=== PATIENT | female | born 1990 ===

== ENCOUNTER 2017-06-07 15:33 | Emergency (ER) | payer MEDICAID ==
[2017-06-07 15:40] VITALS: O2SAT 100
[2017-06-07 18:07] LABS: RBC URINE 1 /hpf (0-3); URINE BILIRUBIN NEGATIVE (NEGATIVE); URINE BLOOD NEGATIVE (NEGATIVE); URINE COLOR Yellow (YELLOW); URINE GLUCOSE (UA) NORMAL (Normal); URINE KETONE NEGATIVE (NEGATIVE); URINE LEUKOCYTE ESTERASE NEG Leu/uL (Negative); URINE PROTEIN NEGATIVE (NEGATIVE); URINE UROBILINOGEN NORMAL mg/dL (0.2-1.0)
--- NOTE | 2017-06-07 18:40 | C.PDOC ---
History Of Present Illness 26 yr old F c/o whitish vaginal d/c for 3-5 days, vaginal pruritis. Pt was not sexually active for 5 months. Denies hx of BV, yeast infection. Time Seen by Provider: 06/07/17 16:50 Chief Complaint (Nursing): Female Genitourinary History Per: Patient History/Exam Limitations: no limitations Onset/Duration Of Symptoms: Gradual Current Symptoms Are (Timing): Still Present Severity: Mild Pain Scale Rating Of: 3 Quality Of Discomfort: Dull Past Medical History Reviewed: Historical Data, Nursing Documentation, Vital Signs Vital Signs: Last Vital Signs Temp 98.2 F 06/07/17 18:52 Pulse 72 06/07/17 18:52 Resp 16 06/07/17 18:52 BP 121/70 06/07/17 18:52 Pulse Ox 100 06/07/17 18:52 - Medical History PMH: No Chronic Diseases Family History: States: No Known Family Hx - Social History Hx Alcohol Use: No Hx Substance Use: No - Immunization History Hx Tetanus Toxoid Vaccination: No Hx Influenza Vaccination: No Hx Pneumococcal Vaccination: No Review Of Systems Except As Marked, All Systems Reviewed And Found Negative. Constitutional: Negative for: Fever Gastrointestinal: Negative for: Nausea, Vomiting, Abdominal Pain Genitourinary: Positive for: Vaginal Discharge. Negative for: Dysuria, Frequency, Pelvic Pain Skin: Negative for: Rash Neurological: Negative for: Weakness, Numbness Physical Exam - Physical Exam Appears: Well, Non-toxic Skin: Normal Color, Warm, Dry Head: Atraumatic, Normacephalic Chest: Symmetrical Cardiovascular: Rhythm Regular Respiratory: Normal Breath Sounds Gastrointestinal/Abdominal: Normal Exam, Bowel Sounds, Soft, No Tenderness Pelvic: Normal External Exam, Normal Bimanual Exam, No Vaginal Bleeding, Vaginal Discharge (thin greyish d/c with a few cotton cheeze like clumps), No Cervical Motion Tenderness Extremity: Normal ROM ED Course And Treatment O2 Sat by Pulse Oximetry: 100 Pulse Ox Interpretation: Normal Progress Note: gc/chlam and cervical cx sent. ua wnl. pt offered STD prophy for GC/chlam, however, pt declines and wants to wait for reports. Disposition Counseled Patient/Family Regarding: Studies Performed, Diagnosis, Need For Followup, Rx Given - Disposition Referrals: [facility] [Outside] [facility] [Outside] Pedro Lopez [Staff Provider] - Disposition: HOME/ ROUTINE Disposition Time: 18:37 Condition: STABLE Additional Instructions: FOLLOW UP WITH [facility] DEMON[facility]ATOR NEXT WEEK FOR RE-EVALUATION AND GC/CHLAMYDIA AND CERVICAL CX REPORT. IF SYMPTOMS GET WORSE OR ANY NEW CONCERNING SYMPTOMS DEVELOP RETURN TO ED. Prescriptions: metroNIDAZOLE [Flagyl] 500 mg PO BID #14 tab Terconazole [Terazol 7] 0.4 sup VG HS #7 cre Instructions: Bacterial Vaginosis (ED), Vulvovaginal Candidiasis (ED) Forms: S[employer] (Amharic) - Clinical Impression Clinical Impression: Vaginitis
[2017-06-07 18:53] VITALS: BP 121/70; PULSE 72; RESP 16; TEMP 98.2
== END 2017-06-07 18:52 | disposition home or self-care (01) ==
LOC: C.ER 15:33
DX: N76.0 Acute vaginitis (principal)